=== PATIENT | female | born 1960 | race Caucasian/White ===

== ENCOUNTER 2022-10-14 10:18 | Day surgery (SDC) | payer OTHER ==
[~2022-10-14] VITALS: Ht 154.9 cm; Wt 70.6 kg
[2022-10-14] MEDS ORDERED: MULVITA (10:46)
[2022-10-14] MEDS ORDERED: ZOLP10 (10:46)
[2022-10-14] MEDS ORDERED: PROBIOTIC1 EA14 (10:46)
[2022-10-14 12:28] VITALS: BP 142/67
== END 2022-10-14 12:10 | disposition home or self-care (01) ==
LOC: ORSCSDS 10:18
PROVIDERS: Internal Medicine Gastroenterology
PROC: 0DBK8ZX Excision of Ascending Colon, Via Natural or Artificial Opening Endoscopic, Diagnostic (ICD-10-PCS; principal; 2022-10-14 12:15)
PROC: 0DB78ZX Excision of Stomach, Pylorus, Via Natural or Artificial Opening Endoscopic, Diagnostic (ICD-10-PCS; principal; 2022-10-14 12:15)
PROC: 0DBM8ZX Excision of Descending Colon, Via Natural or Artificial Opening Endoscopic, Diagnostic (ICD-10-PCS; principal; 2022-10-14 12:15)
PROC: 0DB98ZX Excision of Duodenum, Via Natural or Artificial Opening Endoscopic, Diagnostic (ICD-10-PCS; principal; 2022-10-14 12:15)
DX: R10.13 Epigastric pain (principal); Z12.11 Encounter for screening for malignant neoplasm of colon; Z86.010 Personal history of colon polyps; D12.4 Benign neoplasm of descending colon; D12.2 Benign neoplasm of ascending colon; K64.8 Other hemorrhoids; F17.210 Nicotine dependence, cigarettes, uncomplicated; Z79.899 Other long term (current) drug therapy; Z98.84 Bariatric surgery status
CPT/HCPCS: 88305; 88342; J2704; J7120